=== PATIENT | male | born 1980 | race Two or more races ===

== ENCOUNTER 2023-01-29 12:03 | Inpatient (IN) | payer OTHER ==
[~2023-01-29] VITALS: Ht 182.9 cm; Wt 125.2 kg
--- NOTE | 2023-01-29 12:35 | NUR ---
PACIENTE ALERTA Y ORIENTDA X 3 REFIERE DOLOR ABDOMINAL DESDE EL KELECHI, NAUSEAS.
--- NOTE | 2023-01-29 14:02 | NUR ---
PACIENTE EVALUADO POR DR. RÍOS QUE ORDENA TRATAMIENTO, RN ALBINO EDUCA ACERCA DEL MISMO Y REFIERE ENTENDER. SE CANALIZA Y COLECTAN MUESTRAS DE LABORATORIO MEDIANTE MEDIDAS ASEPTICAS. SE ADMINISTRA MEDICAMENTOS DARIUS ORDEN MEDICA Y MEDIANTE MEDIDAS ASEPTICAS. SE NOTIFICA CT A PERSONAL DE TURNO
--- NOTE | 2023-01-29 15:29 | NUR ---
SE RECIBE PTE ALERTA Y ORIENTADO X3. EN CHASITY DE PASILLO. SE OBSERVA CON BUEN PATRON RESPIRATORIO. CANALIZADO EN RA #[id number], PATENTE, JESSY DE EDEMA Y ERITEMA. RECIBIENDO IV FLUIDS. PEND RESULTADOS DE LAB Y CT
== END 2023-01-31 13:30 | disposition home or self-care (01) | DRG 343 ==
LOC: ER 12:03 → SURH 20:10
PROVIDERS: Surgery; ADMIT Internal Medicine; ATTEND Internal Medicine
PROC: BW21YZZ Computerized Tomography (CT Scan) of Abdomen and Pelvis using Other Contrast (ICD-10-PCS; 2023-01-29)
PROC: 0DTJ4ZZ Resection of Appendix, Percutaneous Endoscopic Approach (ICD-10-PCS; principal; 2023-01-30 08:00)
DX: K35.891 Other acute appendicitis without perforation, with gangrene (principal); R10.31 Right lower quadrant pain